=== PATIENT | male | born 1945 | race Caucasian/White ===

== ENCOUNTER 2024-10-26 05:20 | Observation (INO) | payer MEDICARE, BC ==
[2024-10-25 14:00] LABS: BASOPHILS % 0.2 % (0.0-1.0); EOSINOPHILS # (AUTO) 0.1 (0.0-0.4); EOSINOPHILS % 0.5 % (0.0-6.0); HEMATOCRIT 37.3 % (38.2-49.6); HEMOGLOBIN 12.3 g/dL (14.0-18.0); LYMPHOCYTES # (AUTO) 0.9 (1.0-3.2); LYMPHOCYTES % 8.9 % (18.0-39.1); MEAN CORPUSCULAR HEMOGLOBIN 31.5 pg (28-32); MEAN CORPUSCULAR VOLUME 95.4 fL (81-99); MONOCYTES # (AUTO) 0.9 (0.2-0.8); NEUTROPHILS # (AUTO) 7.7 (2.1-6.9); NEUTROPHILS % 80.9 % (38.7-80.0); PLATELET COUNT 142 x10e3/uL (140-360); RED BLOOD COUNT 3.91 x10e6/uL (4.3-5.7); RED CELL DISTRIBUTION WIDTH 15.9 % (11.7-14.4); WHITE BLOOD COUNT 9.54 x10e3/uL (4.8-10.8)
[2024-10-25 14:25] LABS: INR 0.91; PROTHROMBIN TIME 12.8 seconds (11.9-14.5)
[2024-10-25 14:33] LABS: ANION GAP 15.9 mmol/L (8-16); CALCIUM 9.2 mg/dL (8.4-10.2); CREATININE, SERUM 1.65 mg/dL (0.72-1.25); POTASSIUM 3.9 mmol/L (3.5-5.1)
[~2024-10-26] VITALS: Ht 177.8 cm; Wt 93.0 kg
[~2024-10-26 05:20] MED LIST: ALLOPURINOL100 MG PO; BOSULIF PO; DOXAZOSIN MESYLA2 MG PO; ELIQUIS5 MG PO; FINASTERIDE5 MG PO; NEURONTIN300 MG PO; PREDNISONE5 MG PO
[2024-10-26] MEDS: LACTATED RINGER'S 1,000 ML ONE (06:01)
[2024-10-26] MEDS: CEFAZOLIN SODIUM 2 GM ONE (06:01)
[2024-10-26] MEDS ORDERED: ROCURONIUM BROMIDE 1 ML IV ONE ×2 (07:04→08:36)
[2024-10-26] MEDS ORDERED: FENTANYL CITRATE/PF 100MCG/2 ML INJ ONE (07:04)
[2024-10-26] MEDS ORDERED: LIDOCAINE HCL 2% LOCAL INJ 5 ML SDV VIAL INJ ONE (07:04)
[2024-10-26] MEDS ORDERED: ACETAMINOPHEN 1000 MG/100 ML 100 ML IV ONE (07:05)
[2024-10-26] MEDS ORDERED: PROPOFOL IV EMULSION 10 MG/ML 20 ML VIAL ONE (07:05)
[2024-10-26] MEDS ORDERED: SEVOFLURANE INHAL SOLN 250 ML PEN BTL ONE (07:05)
[2024-10-26] MEDS ORDERED: DEXMEDETOMIDINE HCL 2 ML ONE (07:07)
[2024-10-26] MEDS ORDERED: SODIUM CHLORIDE 0.9% 100 ML ONE (07:08)
[2024-10-26] MEDS ORDERED: KETAMINE 50MG/5ML SYR ONE (07:13)
[2024-10-26] MEDS ORDERED: ONDANSETRON HCL INJ 2MG/ML 2ML 2 MG/ML VIAL ONE (07:13)
[2024-10-26] MEDS ORDERED: DEXAMETHASONE SOD PHOS INJ 4 MG/ML SDV ONE (07:13)
[2024-10-26] MEDS ORDERED: LIDOCAINE HCL (LTA) 4 ML SOLN ONE (08:19)
[2024-10-26] MEDS ORDERED: SUGAMMADEX SODIUM 200 MG/2 ML VIAL IV ONE (08:44)
[2024-10-26] MEDS ORDERED: LACTATED RINGER'S 1,000 ML ONE (08:51)
[2024-10-26] MEDS ORDERED: EPHEDRINE SULFATE INJ 50 MG/ML VIAL ONE (09:15)
[2024-10-26] MEDS ORDERED: HYDROCODON-ACE1 EA12 PO (10:06)
[2024-10-26] MEDS ORDERED: MORPHINE SULFATE 5 MG/ML VIAL IM PRN (10:15)
[2024-10-26] MEDS ORDERED: ZOLPIDEM TARTRATE 5 MG TAB PO PRN (10:15)
[2024-10-26] MEDS ORDERED: CARISOPRODOL 350 MG TAB PO PRN (10:15)
[2024-10-26] MEDS ORDERED: ONDANSETRON HCL INJ 2MG/ML 2ML 2 MG/ML VIAL IV PRN (10:15)
[2024-10-26] MEDS ORDERED: CEPACOL SORE THROAT LOZENGES PO PRN (10:15)
[2024-10-26] MEDS ORDERED: MAGNESIUM/ALUMINUM/SIMETHICONE 30 ML UDC PO PRN (10:15)
[2024-10-26] MEDS ORDERED: ACETAMINOPHEN 325 MG TAB PO PRN (10:15)
[2024-10-26] MEDS ORDERED: PROMETHAZINE HCL (IM) 25 MG/ML VIAL IM PRN (10:15)
[2024-10-26 12:00] VITALS: BP 145/82; PULSE 81; RESP 15; TEMP 97.1; O2SAT 94
[2024-10-26] MEDS: HYDROMORPHONE 2MG/ML IV PRN (12:25)
[2024-10-26] MEDS: LACTATED RINGER'S 1,000 ML IV SCH (13:11)
[2024-10-26] MEDS: BOSUTINIB 100 MG PO SCH (15:17)
[2024-10-26 16:00] VITALS: BP 145/82; PULSE 81; RESP 15; TEMP 97.1; O2SAT 94
[2024-10-26] MEDS: DEXAMETHASONE SOD PHOS INJ 4 MG/ML SDV IV SCH (16:14)
[2024-10-26] MEDS: GABAPENTIN 300 MG CAP PO SCH (16:14)
[2024-10-26 18:21] VITALS: BP 132/71; PULSE 93; RESP 17; TEMP 97.4; O2SAT 99
[2024-10-26 20:00] VITALS: BP 133/73; PULSE 92; RESP 18; TEMP 97.5; O2SAT 98
[2024-10-26] MEDS: OXYCODONE/ACETAMINOPHEN 5-325 1 EACH TABLET PO PRN (23:58)
[2024-10-27] VITALS: BP 149/100; PULSE 112; RESP 16; TEMP 97.5; O2SAT 99
[2024-10-27 04:57] VITALS: BP 129/86; PULSE 105; RESP 20; TEMP 97.5; O2SAT 97
[2024-10-27 08:00] VITALS: BP 151/94; PULSE 90; RESP 18; TEMP 98.2; O2SAT 98
[2024-10-27 08:25] VITALS: BP 151/94; PULSE 90; RESP 18; TEMP 98.2; O2SAT 98
[2024-10-27 10:01] VITALS: BP 151/94
[2024-10-27] MEDS: DOXAZOSIN MESYLATE 2 MG TAB PO SCH (10:01)
[2024-10-27] MEDS: PREDNISONE 5 MG TAB PO SCH (10:01)
[2024-10-27] MEDS: FINASTERIDE 5 MG TAB PO SCH (10:02)
[2024-10-27] MEDS: ALLOPURINOL 100 MG TAB PO SCH (10:02)
== END 2024-10-27 12:05 | disposition home or self-care (01) ==
LOC: OR 05:20 → PACU V 10:18 → MED/SURG 11:16
PROVIDERS: ADMIT Neurological Surgery; ATTEND Neurological Surgery
DX: M50.122 Cervical disc disorder at C5-C6 level with radiculopathy (principal); M50.121 Cervical disc disorder at C4-C5 level with radiculopathy; M47.22 Other spondylosis with radiculopathy, cervical region; M48.02 Spinal stenosis, cervical region; M25.78 Osteophyte, vertebrae; E11.9 Type 2 diabetes mellitus without complications; I48.91 Unspecified atrial fibrillation; Z79.01 Long term (current) use of anticoagulants; N40.0 Benign prostatic hyperplasia without lower urinary tract symptoms; G89.29 Other chronic pain; M10.9 Gout, unspecified; C92.11 Chronic myeloid leukemia, BCR/ABL-positive, in remission; D68.2 Hereditary deficiency of other clotting factors; Z87.891 Personal history of nicotine dependence; Z01.818 Encounter for other preprocedural examination; Z01.812 Encounter for preprocedural laboratory examination; Z79.899 Other long term (current) drug therapy; Z79.52 Long term (current) use of systemic steroids
CPT/HCPCS: 20931; 22551; 22552; 22845; 36415; 71046; 80048; 85025; 85610; 85730; 86850; 86900; 88304; 88311; 93005; C1713 ×4; C1763; G0378 ×2; J0131; J0690 ×2; J1100 ×2; J1170 ×2; J2003; J2405; J2704; J3010; J7050; J7121 ×2; J7512; 76000